=== PATIENT | female | born 1945 | race Caucasian/White ===

== ENCOUNTER 2016-11-15 03:04 | Emergency (ER) | payer OTHER ==
[~2016-11-15] VITALS: Ht 147.3 cm; Wt 43.5 kg
[2016-11-15 03:04] VITALS: BP 147/80; PULSE 70; RESP 12; TEMP 97.8; O2SAT 99
--- NOTE | 2016-11-15 03:04 | NUR ---
Patient to ER bed 4 to gown for evaluation. Side rails up. Report given to ALEXANDRE CORTEZ.
--- NOTE | 2016-11-15 03:06 | NUR ---
ED MD Hernández at bedside for medical evaluation.
--- NOTE | 2016-11-15 03:10 | NUR ---
Patient brought to ED via BLS a/o x 4 seeking medical treatment. Prior to arrival, patient was at [facility], where she was informed by PD that she could no longer be there. Patient refused to leave. Patient has Hx. of HTN and thyroid disease prompting EMS call. Patient has no complaints at this time. Vital signs within normal range upon assessment. Appears in no acute distress at this time. Will continue to monitor.
--- NOTE | 2016-11-15 03:30 | NUR ---
Patient ambulated to bathroom with walker assistance. Unable to provide urine at this time.
[2016-11-15 04:24] LABS: BASOPHILS # (AUTO) 0.1 K/uL (0.0-0.2); BASOPHILS % (AUTO) 1.1 % (0.0-2.0); EOSINOPHILS # (AUTO) 0.1 K/uL (0.0-0.4); EOSINOPHILS % (AUTO) 0.5 % (0.0-4.0); HEMATOCRIT 48.2 % (36-48); HEMOGLOBIN 15.4 g/dL (12.0-16.0); LYMPHOCYTES # (AUTO) 1.6 K/uL (1.0-5.5); LYMPHOCYTES % (AUTO) 14.9 % (20.5-51.5); MEAN CORPUSCULAR HEMOGLOBIN 27 pg (27-31); MEAN CORPUSCULAR HGB CONC 32 % (32-36); MEAN CORPUSCULAR VOLUME 86 fL (79.0-98.0); MONOCYTES # (AUTO) 0.5 K/uL (0.0-1.0); MONOCYTES % (AUTO) 4.6 % (1.7-9.3); NEUTROPHILS # (AUTO) 8.2 K/uL (1.8-7.7); NEUTROPHILS % (AUTO) 78.9 % (40.0-70.0); PLATELET COUNT (AUTO) 288 K/uL (130-430); RED BLOOD CELL COUNT(AUTO) 5.63 MIL/uL (4.2-6.2); RED CELL DISTRIBUTION WIDTH 12.8 % (9.0-15.0); WHITE BLOOD COUNT (AUTO) 10.5 K/uL (4.8-10.8)
--- NOTE | 2016-11-15 04:30 | NUR ---
Laboratory at bedside.
[2016-11-15 04:47] LABS: ANION GAP 15 (5-15); CALCIUM 9.5 mg/dL (8.4-11.0); CHLORIDE 100 mmol/L (98-107); CREATININE 1.14 mg/dL (0.55-1.30); GLUCOSE 75 mg/dL (70-99); POTASSIUM 4.1 mmol/L (3.5-5.1); SODIUM SERUM 137 mmol/L (136-145); UREA NITROGEN, BLOOD 26 mg/dL (8-21)
[2016-11-15 04:52] LABS: ALANINE AMINOTRANSFERASE 11 U/L (12-78); ALBUMIN 4.1 g/dL (3.4-4.8); ASPARTATE AMINOTRANSFERASE 21 U/L (10-37); TOTAL BILIRUBIN 0.8 mg/dL (0.0-1.0); TOTAL PROTEIN, SERUM 7.9 g/dL (6.4-8.3)
--- NOTE | 2016-11-15 05:10 | NUR ---
#14 FR In and Out catheter with use of sterile technique. Immediate return of 50 ml dark yellow urine noted. Urine sample collected and sent to lab. Pt tolerated procedure well. Patient unable to toilet self.
[2016-11-15] MEDS ORDERED: cefTRIAXone 1 GM in LIDOCAINE 1%, 20 ML MDV 2.1 ML IM ONE (05:15)
[2016-11-15 05:22] LABS: BILIRUBIN,URINE 2+ (NEGATIVE); BLOOD, URINE 1+ (NEGATIVE); CLARITY/URINE SL HAZY (CLEAR); COLOR,URINE YELLOW (YELLOW); GLUCOSE,URINE NEGATIVE (NEGATIVE); KETONES,URINE 1+ (NEGATIVE); LEUKOCYTE ESTERASE ,URINE NEGATIVE (NEGATIVE); NITRITE, URINE NEGATIVE (NEGATIVE); PH,URINE 5.5 (5.0-8.0); PROTEIN URINE 2+ (NEGATIVE); UROBILINOGEN,URINE 0.2 (0.2-1.0)
[2016-11-15 05:35] LABS: BACTERIA,URINE MODERATE /HPF (None Seen); RBC,URINE 0-3 /HPF (0-3)
[2016-11-15 05:36] LABS: MUCUS,URINE None Seen /LPF (None Seen); URINE AMORPHOUS URATE 2+ /HPF (None Seen)
--- NOTE | 2016-11-15 06:13 | NUR ---
Left message for Jennifer with social service director to look into placement for this patient
--- NOTE | 2016-11-15 07:08 | NUR ---
Called for breakfast tray for patient.
--- NOTE | 2016-11-15 07:25 | NUR ---
Patient resting in bed, eye open, unlabored even breathing, no signs of distress, vss.
--- NOTE | 2016-11-15 09:52 | NUR ---
Social Service Note: CAREER TECHNICAL SUPERVISOR called to ED to meet with pt due to pt being homeless. CAREER TECHNICAL SUPERVISOR met with pt at bedside; CAREER TECHNICAL SUPERVISOR called pt's name several times; pt would not roll over to talk to CAREER TECHNICAL SUPERVISOR. CAREER TECHNICAL SUPERVISOR asked pt where she has been staying; pt stated "it is none of your business". CAREER TECHNICAL SUPERVISOR asked pt how long she has been homeless; pt again stated "it is none of your business". CAREER TECHNICAL SUPERVISOR asked pt where she would like to go upon discharged; pt stated "its none of your business". CAREER TECHNICAL SUPERVISOR asked pt if she was open to going to a group home; pt stated "yes". CAREER TECHNICAL SUPERVISOR alerted pt that there is a group home in [place], ([address], [place]). Pt states that she is agreeable to go to a group home. CAREER TECHNICAL SUPERVISOR provided pt with homeless assistance resources. CAREER TECHNICAL SUPERVISOR obtained taxi voucher and homeless waiver. CAREER TECHNICAL SUPERVISOR alerted pt's nurse that pt is willing to go to group home. CAREER TECHNICAL SUPERVISOR will remain available for support and will follow up as needed.
[2016-11-15 11:30] VITALS: BP 133/70; PULSE 82; RESP 16; TEMP 97.8; O2SAT 100
--- NOTE | 2016-11-15 11:30 | NUR ---
Patient given written and verbal discharge instructions and verbalizes understanding. ER MD discussed with patient the results and treatment provided. Patient in stable condition. ID arm band removed. Rx of Keflex given. Patient educated on pain management and to follow up with PMD. Pain Scale 0/10. Opportunity for questions provided and answered. Patient safely discharged off unit via wheel chair.
== END 2016-11-15 11:30 | disposition home or self-care (01) ==
LOC: SED 03:04
DX: N39.0 Urinary tract infection, site not specified (principal); R46.0 Very low level of personal hygiene; I10 Essential (primary) hypertension; Z88.0 Allergy status to penicillin; Z59.0 Homelessness
CPT/HCPCS: 36415; 80053; 81000; 85025; 87086; 96372; 99284; J0696; J2001